=== PATIENT | female | born 2000 | race Caucasian/White ===

== ENCOUNTER → 2023-08-21 14:50 | Outpatient (CLI) | payer OTHER, SELFPAY ==
--- NOTE | 2023-08-21 14:52 | DI.US.S_ITS ---
PROCEDURE: US ABDOMEN LIMITED INDICATIONS: Right inguinal hernia TECHNIQUE: Real-time focused scanning was performed of the abdomen, with image documentation. COMPARISON: None. FINDINGS: No inguinal hernia is identified. Scattered lymph nodes are present in the right lower quadrant the largest measuring 1 point 9 cm in short axis. Several demonstrate increased vascularity with a less than well-defined fatty hilum. IMPRESSION: Prominent inguinal lymph nodes with several demonstrating loss of fatty hilum and increased vascularity. While these could be reactive in nature, short interval imaging follow-up is recommended to document return to normal morphologic appearance. Otherwise, fine-needle aspiration/biopsy is rectum Dictated by: Saritha Sauceda M.D. on 08/21/2023 at 20:45 Approved by: Saritha Sauceda M.D. on 08/21/2023 at 20:46
== END ==
LOC: US 14:51
PROVIDERS: Referring Provider Registered Nurse; Visit Provider Registered Nurse
DX: R19.09 Other intra-abdominal and pelvic swelling, mass and lump (principal)
CPT/HCPCS: 76705